=== PATIENT | male | born 1945 | race Caucasian/White ===

== ENCOUNTER 2021-06-08 09:46 | Outpatient (CLI) | payer MEDICARE, OTHER, SELFPAY ==
[2021-06-08 10:00] VITALS: BP 106/48; PULSE 80; RESP 16; TEMP 36.6; O2SAT 100; BMI 23.1
[2021-06-08] MEDS: 0.9% NaCl VAD Flush IV (10:22)
[2021-06-08] MEDS: Acetaminophen 325 MG Tablet 650 MG PO (10:28)
[2021-06-08 10:56] VITALS: BP 101/49; PULSE 78; RESP 16; TEMP 36.8; O2SAT 100
[2021-06-08 11:56] VITALS: BP 93/48; PULSE 77; RESP 16; TEMP 37
[2021-06-08 12:56] VITALS: BP 94/52; PULSE 76; RESP 16; TEMP 36.6
== END 2021-06-08 23:59 | disposition home or self-care (01) ==
PROVIDERS: Referring Provider Internal Medicine Hematology & Oncology; Visit Provider Internal Medicine Hematology & Oncology
DX: Z51.89 Encounter for other specified aftercare (principal); C85.90 Non-Hodgkin lymphoma, unspecified, unspecified site; D64.9 Anemia, unspecified
CPT/HCPCS: 36430; 86850; 86900; 86901; J7040; P9016; A4216